=== PATIENT | male | born 1990 | race Caucasian/White ===

== ENCOUNTER 2017-02-25 12:17 | Emergency (ER) | payer MEDICAID ==
--- NOTE | 2017-03-09 10:17 | ER ---
ADMIT: 02/25/2017 RM/LOC: ER [facility] MR#: [id number] [id number] [place] [address] Emergency Room Report SEX: M AGE: 26 : 1990 DATE: 02/25/2017 ADDENDUM: CHIEF COMPLAINT: Pain and nausea. HISTORY OF PRESENT ILLNESS: This is a 26-year-old who had sudden onset of pain at 10:00 a.m. this morning. It is mostly in his left flank and then radiated to the front. Denies any dysuria, but when he does urinate that increases pain into his back. COURSE IN THE EMERGENCY ROOM: Renal colic CT was done, this showed a 1.9 mm stone at the UVJ. His pain has been significantly better since he has been here. He did receive 75 mcg of fentanyl prior to arrival, has not asked for any pain medications while here. I am sending him home with [place] just in case he needs for pain or Phenergan for nausea. Having him push fluids and follow up Urology if symptoms continue. MADYSON Blackwood / Ricky Lafleur MD / kyler JOB #: [id number] CC: Ricky Lafleur MD, Attending Physician UNKNOWN, Family Physician
== END 2017-02-25 14:35 | disposition home or self-care (01) ==
LOC: ER 12:17
DX: N20.2 Calculus of kidney with calculus of ureter (principal); J45.909 Unspecified asthma, uncomplicated; F17.210 Nicotine dependence, cigarettes, uncomplicated